=== PATIENT | male | born 1950 | race Caucasian/White ===

== ENCOUNTER 2020-08-08 18:31 | Observation (INO) | payer OTHER, SELFPAY ==
[2020-08-08] VITALS (11 sets, daily range): BP systolic 174–216; BP diastolic 49–72; PULSE 64–80; RESP 12–20; TEMP 36.6–36.8; O2SAT 94–97; BMI 29.9
--- NOTE | ~2020-08-08 | XR_ITS ---
EXAMINATION: XR lumbar spine 2-3V EXAM DATE: 08/08/2020 19:44 INDICATION: Low back pain, spasm. TECHNIQUE: Lumber spine frontal, lateral, lateral L5-S1 projections for interpretation. There is no prior study for comparison. FINDINGS: Moderate-sized bridging endplate osteophytes at L1-2 and the inferior endplate of L3. Ther e is mild diffuse lumbar disc disease and mild to moderate facet arthropathy. Extensive aortic arteri al sclerosis. Biiliac arterial stents. Sacrum, sacroiliac joints, sacral arcuate lines are intact. No endplate erosive change. The vertebral bodies are aligned in the AP dimension. IMPRESSION: 1. [id number] lumbar spondylosis. 2. No acute findings. Reviewed, dictated and finalized at location A. IMPRESSION: 1. [id number] lumbar spondylosis. 2. No acute findings.
--- NOTE | ~2020-08-08 | US_ITS ---
EXAMINATION: US venous doppler [facility] DATE: 08/09/2020 12:21 INDICATION: Bilateral lower limb edema TECHNIQUE: Roth scale images without and with compression and Doppler images of the bilateral lower e xtremity veins were obtained. COMPARISON: None FINDINGS: The right common femoral vein, profunda femoral vein, femoral vein, popliteal vein, peroneal trunk, p osterior tibial veins, and greater saphenous vein are patent. The left common femoral vein, profunda femoral vein, femoral vein, popliteal vein, peroneal trunk, po sterior tibial veins, and greater saphenous vein are patent. IMPRESSION: 1. Patent bilateral lower extremity veins. No evidence of deep venous thrombosis. Reviewed, dictated and finalized at location B. IMPRESSION: 1. Patent bilateral lower extremity veins. No evidence of deep venous thrombosi s.
--- NOTE | ~2020-08-08 | CT_ITS ---
EXAMINATION: CT abdomen pelvis wo con EXAM DATE: 08/08/2020 22:07 INDICATION: Abdominal pain. TECHNIQUE: Spiral CT of the abdomen and pelvis was performed without contrast. Axial, coronal and sag ittal images were reviewed. The dose-length product (DLP) for this examination was 1124.56 mGy-cm. The exposure was tailored according to patient size (auto mA exposure control), and iterative reconst ruction (ASIR) was used as additional dose reduction technique. There is no prior study for comparis on. FINDINGS: Scattered renal arterial sclerosis and also possible nonobstructing calyceal stones. Some s carring at the lower pole of the left kidney. The prostate is unremarkable. The bladder is distended but otherwise unremarkable. The liver, spleen, adrenal glands and pancreas are unremarkable. There are cholecystectomy clips. There is no retroperitoneal or pelvic lymphadenopathy. There is extens shahram scattered arterial sclerotic disease. There is some density within the appendix but could be ingested contrast or other ingested material. The appendix is normal in caliber and there is no adjacent inflammation. The stomach and small bowel are unremarkable. There is expected amount of colonic stool. No free intraperitoneal gas. The h eart is normal in size. There are no pericardial or pleural effusions. The lung bases are unremarka ble. There are no osteoblastic or osteolytic lesions identified. IMPRESSION: 1. No acute intra-abdominal findings. 2. Renal arterial sclerosis versus nonobstructing calyceal stones. Reviewed, dictated and finalized at location A.
--- NOTE | ~2020-08-08 | US_ITS ---
EXAMINATION: US retroperitoneal comp DATE: 08/09/2020 12:21 INDICATION: Acute on chronic renal failure TECHNIQUE: Multiple grayscale and Doppler ultrasound images of the kidneys were obtained. COMPARISON: None. FINDINGS: The right kidney measures 10.0 x 5.2 x 5.0 cm. There is a 7 mm cyst of the kidney. Vascular calcifications are noted. The left kidney measures 10.7 x 5.7 x 5.0 cm. The kidneys demonstrate norm al parenchymal echogenicity. There is no hydronephrosis. The bladder demonstrates a small amount of d ebris. IMPRESSION: 1. Normal kidneys without hydronephrosis. 2. Small amount of debris in the bladder. Reviewed, dictated and finalized at location B.
[2020-08-08] MEDS: methylPREDNISolone SOD SUCC 125 MG VIAL IV PUSH (19:28)
[2020-08-08] MEDS: KETOROLAC 15 MG/ML VIAL (*BKC) IV PUSH (19:31)
--- NOTE | 2020-08-08 19:49 | ED.GENADULT ---
HPI - General Adult General Chief complaint: Back Pain/Injury <Maranda Butler PA-C - Last Filed: 08/08/20 22:55> Stated complaint: mucle spasm <Maranda Butler PA-C - Last Filed: 08/08/20 22:55> Time Seen by Provider: 08/08/20 18:56 <Maranda Butler PA-C - Last Filed: 08/08/20 22:55> Source: patient and family (Daughter Melinda) <Maranda Butler PA-C - Last Filed: 08/08/20 22:55> Mode of arrival: EMS <ARNOLD Hargrove Last Filed: 08/08/20 22:55> Limitations: no limitations <Maranda Butler PA-C - Last Filed: 08/08/20 22:55> History of Present Illness HPI narrative: Patient with history of cervical surgery, incomplete quadriplegia, hypertension GERD hypercholesterolemia BPH presents with chief complaint of intermittent low back spasming that has been progressively worsening over the past 2 weeks. Patient states that he has a history of cervical discomfort and surgery many years ago for which he takes baclofen in cyclobenzaprine for muscle spasming. Patient states he has been taking those medications without remittance of his low back spasms. Patient states that he has not had any recent falls or direct injuries to correlate his low back pain. He denies any radiation of pain to his lower extremities any numbness or tingling or saddle paresthesias in his lower extremities or loss of bowel or bladder function. Patient states that he sees a spinal specialist for his cervical issues but has not reached out regarding his lumbar issues. Patient states that 3 to 4 months ago he went to the [facility] with low back pain and was offered a steroid but he declined at that time. Patient states that his symptoms resolved and he never followed up because he did not think much of it. Patient states that he was having trouble ambulating today with his walker due to his back pain so he called the ambulance to bring him to the emergency department. <Maranda Butler PA-C - Last Filed: 08/08/20 22:55> Related Data Home medications: Home Medications Medication Instructions Recorded Confirmed aspirin 81 mg PO DAILY 08/08/20 baclofen 20 mg PO TID 08/08/20 cetirizine 5 mg PO DAILY 08/08/20 chlorthalidone 25 mg PO DAILY 08/08/20 cholecalciferol (vitamin D3) 50 mcg PO DAILY 08/08/20 clopidogrel 75 mg PO DAILY 08/08/20 cyclobenzaprine 5 mg PO TID PRN 08/08/20 docusate sodium 100 mg PO BID 08/08/20 duloxetine 30 mg PO DAILY 08/08/20 ferrous sulfate 325 mg PO BID 08/08/20 furosemide 20 mg PO BID 08/08/20 isosorbide mononitrate 30 mg PO DAILY 08/08/20 losartan 50 mg PO DAILY 08/08/20 metoprolol tartrate 25 mg PO DAILY 08/08/20 multivitamin with minerals [Daily 1 tablet PO DAILY 08/08/20 Multivitamin-Minerals] omega 0-pvn-cov-fish oil [Fish Oil] 1 cap PO DAILY 08/08/20 pantoprazole 40 mg PO HS 08/08/20 pravastatin 80 mg PO DAILY 08/08/20 tamsulosin mg PO 08/08/20 <Maranda Butler PA-C - Last Filed: 08/08/20 22:55> Allergies/adverse reactions: Allergies Allergy/AdvReac Type Severity Reaction Status Date / Time morphine Allergy Unknown Verified 08/08/20 18:41 <Maranda Butler PA-C - Last Filed: 08/08/20 22:55> Review of Systems Review of Systems: Narrative: CONSTITUTIONAL: Denies fever, chills, or sweats. EYES: Denies visual changes, redness, or discharge. ENT: Denies rhinorrhea, congestion, sore throat, or otalgia. CARDIOVASCULAR: Denies chest pain, palpitations, or edema. RESPIRATORY: Denies cough or dyspnea. GASTROINTESTINAL: Denies abdominal pain, nausea, vomiting, or diarrhea. GENITOURINARY: Denies dysuria or hematuria. SKIN: Denies rash or itching. MUSCULOSKELETAL: Reports back spasms, denies joint pain, or myalgia. NEUROLOGIC: Denies headache, numbness, dizziness, or weakness. PSYCHIATRIC: Denies anxiety or depression. <Maranda Butler PA-C - Last Filed: 08/08/20 22:55> [facility] Past Medical History Medical History: Medical History (Updated 08/08/20 @ 22
[2020-08-08 21:02] LABS: Basophils Percent Auto 0.4 % (0.2-1.2); Eosinophils Absolute Auto 0.1 K/mm3 (0-0.3); Eosinophils Percent Auto 1.3 % (0-4.4); Hematocrit 36.2 % (42.0-52.0); Hemoglobin 11.5 g/dL (14.0-18.0); Immature Granulocyte Absolute 0.05 K/mm3 (0.00-0.031); Immature Granulocyte Percent A 0.5 % (0-0.5); Lymphocytes Absolute Auto 0.87 K/mm3 (0.9-3.2); Lymphocytes Percent Auto 8.8 % (18.3-44.2); Mean Corpuscular HGB Conc 31.8 g/dl (32-36); Mean Corpuscular Hemoglobin 29.7 pg (26-34); Mean Corpuscular Volume 93.5 fl (80-100); Mean Platelet Volume 11.4 fl (7.4-10.4); Monocytes Absolute Auto 0.5 K/mm3 (0.1-0.6); Monocytes Percent Auto 4.6 % (2.6-8.5); Neutrophils Absolute Auto 8.4 K/mm3 (1.3-6.7); Neutrophils Percent Auto 84.4 % (45.5-73.1); Platelet Count Result 155 k/mm3 (150-375); Red Blood Count 3.87 M/mm3 (4.6-6.20); Red Cell Distribution Width 14.3 % (11.5-14.5); White Blood Count 9.9 K/mm3 (4.5-10.0)
[2020-08-08 21:12] LABS: Alanine Aminotransferase 15 U/L (4-50); Alkaline Phosphatase 97 U/L (38-126); Anion Gap 6 mmol/L (8-16); Aspartate Amino Transferase 20 U/L (17-59); Bilirubin,Total 0.4 mg/dL (0.2-1.3); Blood Urea Nitrogen 46 mg/dL (9-20); Calcium 8.9 mg/dL (8.4-10.2); Carbon Dioxide 26 mmol/L (22-30); Chloride 107 mmol/L (98-107); Estimated CRCL calculation 32 ml/min; Estimated Glomerular Filt Rate 31; Glucose 110 mg/dL (75-110); Potassium 4.9 mmol/L (3.4-5.0); Sodium 139 mmol/L (137-145)
[2020-08-08 21:27] LABS: Add Urine Microscopic? YES; Appearance Urine Cloudy (Clear); Bacteria Urine 1+ /hpf; Bilirubin Urine Negative (Negative); Blood Urine Negative (Negative); Color Urine Yellow (Yellow); Glucose Urine UA Negative (Negative); Ketones Urine Negative (Negative); Leukocyte Esterase Ur 3+ LEU/UL (Negative); Mucus Urine Rare /lpf; Nitrate Urine Negative (Negative); Protein Urine 1+ mg/dL (Negative); Specific Grav Ur 1.012 (1.001-1.035); Urobilinogen Urine Negative mg/dL (<2.0); WBC Urine >75 /hpf
[2020-08-08] MEDS: hydrALAZINE HCL 20 MG/ML VIAL 10 MG IV PUSH (22:16)
--- NOTE | 2020-08-08 23:50 | ADMGEN ---
This patient, Con Prado, was admitted to Medical Room 340-01. Patient/family oriented to hospital policies and general routines including ID bracelet, bed and alarms, visiting hours, pain management, procedures, bathroom and other care routines, personal items, smoking policy, room service/diet, and visiting hours. Valuables list has been completed. Information on how to activate the Rapid Response Team has been discussed. Patient/Family are encouraged to report perceived risks to care and to ask questions if they do not understand what they are told or what they should do.
--- NOTE | 2020-08-08 23:58 | PM.IMHP ---
H&P: HPI History of Present Illness Date/Time: 08/08/20 23:58 Chief complaint: Acute Kidney Injury, UTI, Low Back Pain Narrative: Con Prado is a 70 year old male who typically goes to the MD. His a past history of cervical fracture. He has had C5 fusion in the past year he has incomplete quadriplegia. He has a history of having hypertension hyperlipidemia poor the patient's chief complaint is intermittent lower back pain. It has been progressively getting worse for the last 2 weeks. The ER doctor called the MD and they stated that they did not have any beds. The patient takes but baclofen for his muscle spasms. He has not had any recent falls or injuries. He has not lost bowel or bladder per he has a history of having chronic renal disease with the last creatinine of 1.7. The patient went to the MD complaining of lower back pain 3-4 months ago he was offered steroids that he refused. The patient was having problems ambulating today. He usually ambulates with a Rollator or of motorized scooter. Patient stated that he urinates without difficulty although he does have some problems with his prostate. He states he takes medication for the prostate. He has not had any fever chills no nausea vomiting or diarrhea. His blood pressure was 214/64 in the emergency room. He states that is usually under control. Patient was given hydralazine. The patient was started on Rocephin for urinary tract infection. Patient was given Toradol in the emergency room as well as Solu-Medrol. The patient is not diabetic and has a ulcerated area on route, the left great toe. Date of service 08/09/2020 Review of Systems Review of Systems: All systems reviewed & are unremarkable except as noted in HPI and below Constitutional: Constitutional: Reports as per HPI and Reports no additional constitutional complaints Eyes: Eyes: Reports as per HPI and Reports no additional eye complaints ENT: Reports system reviewed and no additional complaints, except as documented and Reports Normal hearing present Cardiovascular: Cardiovascular: Reports no additional cardiovascular complaints Respiratory: Respiratory: Reports no additional respiratory complaints and Reports no additional respiratory complaints Gastrointestinal: Gastrointestinal: Reports as per HPI and Reports no additional gastrointestinal complaints Musculoskeletal: Musculoskeletal: Reports no additional musculoskeletal complaints Integumentary/Breasts: Skin/Breast: Reports system reviewed and no additional complaints, except as docu and Reports as per HPI Neurologic: Reports system reviewed and no additional complaints, except as documented, Reports as per HPI and Reports Normal hearing present Psychiatric: Psychiatric: Reports no additional psychiatric complaints and Reports as per HPI Endocrine: Endocrine: Reports no additional endocrine complaints Hematologic/Lymphatic: Hematologic/Lymphatic: Reports no additional hematologic/lymphatic complaints Allergic/Immunologic: Allergic/Immunologic: Reports no additional allergic/immunologic complaints [facility] Social History Social History (Updated 08/09/20 @ 00:16 by Emilia Ruiz NP) Social History: Patient has smoked a pack a cigarettes a day for 53 years. He lives with his who is a durable she helps take care of him. 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 He denies any alcohol or drug use. The patient desires to be a full code. Patient has 1 biological child and 2 stepchildren. He is now disabled. Smoking packs per day: 1 Smoking cigarettes per day: 20.0 Years smoked: 53 Smoking pack-years: 53.00 Smoking status: Current every day smoker Tobacco type: cigarettes Alcohol intake: never Alcohol use details: none Substance use: never Other substance usage details: none Gender identity (if verbalized by the patient): Male Spiritual care concerns: No Meds Home Medications and Allergies Home
[2020-08-09] VITALS (9 sets, daily range): BP systolic 152–188; BP diastolic 52–80; PULSE 71–93; RESP 18–20; TEMP 36.5–37.2; O2SAT 94–99
--- NOTE | 2020-08-09 01:23 | PC.NURSE ---
Fax sent to [facility] at this time, via fax number [phone] to obtain medical records per Emilia Ruiz NP. Signed copy of request placed in chart.
[2020-08-09 05:35] LABS: Basophils Percent Auto 0.1 % (0.2-1.2); Hematocrit 35.3 % (42.0-52.0); Hemoglobin 11.4 g/dL (14.0-18.0); Immature Granulocyte Absolute 0.06 K/mm3 (0.00-0.031); Immature Granulocyte Percent A 0.8 % (0-0.5); Lymphocytes Absolute Auto 0.75 K/mm3 (0.9-3.2); Lymphocytes Percent Auto 9.5 % (18.3-44.2); Mean Corpuscular HGB Conc 32.3 g/dl (32-36); Mean Corpuscular Hemoglobin 29.8 pg (26-34); Mean Corpuscular Volume 92.4 fl (80-100); Mean Platelet Volume 12.3 fl (7.4-10.4); Monocytes Absolute Auto 0.1 K/mm3 (0.1-0.6); Monocytes Percent Auto 1.6 % (2.6-8.5); Platelet Count Result 168 k/mm3 (150-375); Red Blood Count 3.82 M/mm3 (4.6-6.20); Red Cell Distribution Width 14.2 % (11.5-14.5); White Blood Count 7.9 K/mm3 (4.5-10.0)
[2020-08-09] MEDS: methylPREDNISolone SOD SUCC 125 MG VIAL 80 MG IV PUSH ×2 (05:39→11:10)
[2020-08-09 05:53] LABS: Alanine Aminotransferase 15 U/L (4-50); Albumin Level 3.7 g/dL (3.5-5.1); Alkaline Phosphatase 86 U/L (38-126); Anion Gap 6 mmol/L (8-16); Aspartate Amino Transferase 20 U/L (17-59); Bilirubin,Total 0.3 mg/dL (0.2-1.3); Blood Urea Nitrogen 47 mg/dL (9-20); Carbon Dioxide 24 mmol/L (22-30); Chloride 107 mmol/L (98-107); Estimated CRCL calculation 37 ml/min; Estimated Glomerular Filt Rate 38; Glucose 131 mg/dL (75-110); Magnesium 2.4 mg/dL (1.6-2.3); Phosphorus 3.3 mg/dL (2.5-4.5); Potassium 5.3 mmol/L (3.4-5.0); Sodium 137 mmol/L (137-145)
[2020-08-09 06:17] LABS: Thyroid Stimulating Hormone Reflex 0.233 uIU/mL (0.465-4.68)
[2020-08-09 07:52] LABS: Free T4 Free Thyroxine Reflex 1.12 ng/dL (0.78-2.19)
[2020-08-09] MEDS: LORATADINE 5 MG TABLET PO (08:18)
[2020-08-09] MEDS: ISOSORBIDE MONONITRATE 30 MG TAB.ER.24H PO (08:19)
[2020-08-09] MEDS: DULoxetine HCL 30 MG CAPSULE.DR PO (08:19)
[2020-08-09] MEDS: THERAPEUTIC MULTIVITAMINS/MINERALS TAB (*BKC) 1 TABLET PO (08:19)
[2020-08-09] MEDS: TAMSULOSIN HCL 0.4 MG CAPSULE PO (08:19)
[2020-08-09] MEDS: FERROUS SULFATE 324 MG TABLET PO ×2 (08:19→16:21)
[2020-08-09] MEDS: CLOPIDOGREL BISULFATE 75 MG TABLET PO (08:19)
[2020-08-09] MEDS: OMEGA 3 POLYUNSAT FATTY ACIDS 1 GM CAP PO (08:19)
[2020-08-09] MEDS: BACLOFEN 10 MG TABLET 20 MG PO ×3 (08:20→16:21)
[2020-08-09] MEDS: PRAVASTATIN SODIUM 20 MG TABLET 80 MG PO (08:20)
[2020-08-09] MEDS: ASPIRIN 81 MG ENTERIC TABLET PO (08:20)
[2020-08-09] MEDS: DOCUSATE SODIUM 100 MG CAPSULE PO ×2 (08:20→16:20)
[2020-08-09] MEDS: SODIUM POLYSTYRENE SULFONONATE 15 GM/60 ML BTL PO (08:31)
[2020-08-09 09:36] LABS: Total Triiodothyronine (T3) 0.91 NG/ML (0.97-1.69)
[2020-08-09] MEDS: METOPROLOL TARTRATE 12.5 MG TABLET PO ×2 (11:09→21:10)
[2020-08-09] MEDS: PHARMACIST COMMUNICATION ORDER 1 EACH XX (11:10)
--- NOTE | 2020-08-09 13:10 | PM.IMPN ---
Progress Note: A&P Assessment and Plan (1) Acute UTI: Code(s): N39.0 - Urinary tract infection, site not specified Status: Acute Assessment and Plan: UA is suspicious for UTI. Urine culture is pending. CT abd/pelvis was performed with no evidence of obstructing stone or pyelonephritis. Continue IV ceftriaxone. Blood cultures were ordered and are pending. Await final urine cultures. (2) Acute kidney injury: Code(s): N17.9 - Acute kidney failure, unspecified Status: Acute Assessment and Plan: Cr in June was 1.6 per ED record. Renal ultrasound was ordered and demonstrated 7mm right renal cyst, calcifications, and otherwise normal parenchyma without hydronephrosis. CT abd/pelvis demonstrated scarring at the lower pole of the left kidney, scattered renal arterial sclerosis possible nonobstructing calyceal stones. Chlorthalidone, furosemide, and losartan are on hold. Cr has improved to 1.8 and BUN 47 today. GRANT appears pre-renal due to poor PO intake/diuretics with UTI possibly contributing as well. Check bladder scan to r/o retention. Continue to monitor renal function. Avoid nephrotoxins and renally dose medications. (3) Incomplete quadriplegia at C5-C8 level: Code(s): G82.54 - Quadriplegia, C5-C7 incomplete Status: Chronic Assessment and Plan: [facility] Continue prior to admission baclofen and cyclobenzaprine. He was treated with IV solumedrol with significant improvement. Begin taper with medrol dose pack. (4) BPH (benign prostatic hyperplasia): Code(s): N40.0 - Benign prostatic hyperplasia without lower urinary tract symptoms Status: Chronic Assessment and Plan: Chronic with no acute issues. Continue tamsulosin. (5) Chronic incomplete quadriplegia: Code(s): G82.50 - Quadriplegia, unspecified Status: Acute Assessment and Plan: PT/OT were offered but the patient refused. (6) Hypertension: Qualifiers: Hypertension type: unspecified Qualified Code(s): I10 - Essential (primary) hypertension Code(s): I10 - Essential (primary) hypertension Status: Chronic Assessment and Plan: Blood pressures were reviewed and are above target. His low back pain yesterday was likely contributing. Losartan and chlorthalidone are on hold given GRANT. Add amlodipine. Continue to monitor and resume losartan and chlorthalidone when clinically appropriate. Switch BP monitoring to q4 hours. (7) Depression: Code(s): F32.9 - Major depressive disorder, single episode, unspecified Status: Chronic Assessment and Plan: Chronic and stable. Continue cymbalta. (8) Iron deficiency anemia: Code(s): D50.9 - Iron deficiency anemia, unspecified Status: Chronic Assessment and Plan: Chronic. Labs are stable. Continue ferrous sulfate. Continue to monitor. Transfuse PRN to maintain Hb >7. (9) Hyperlipidemia: Code(s): E78.5 - Hyperlipidemia, unspecified Status: Chronic Assessment and Plan: LFTs were reviewed and are normal. Continue pravastatin and omega 3. (10) CAD (coronary artery disease): Code(s): I25.10 - Atherosclerotic heart disease of jena coronary artery without angina pectoris Status: Chronic Assessment and Plan: Chronic. Continue plavix and aspirin. Continue isosorbide mononitrate. (11) Lymphedema: Code(s): I89.0 - Lymphedema, not elsewhere classified Status: Chronic Assessment and Plan: Wound care has been consulted and input is appreciated. Continue leg elevation. He has been referred to a specialist and needs to continue follow-up outpatient. (12) Hyperkalemia: Code(s): E87.5 - Hyperkalemia Status: Acute Assessment and Plan: Potassium was 5.3, likely due to GRANT. Give 1 dose of kayexalate. Repeat BMP tomorrow. Subjective
[2020-08-09] MEDS: EUCERIN CREAM 120 GM JAR 1 APPLIC TOPICAL (15:42)
--- NOTE | 2020-08-09 15:54 | PM.CNNEP ---
Assessment and Plan Assessment and plan (1) Acute kidney injury: Code(s): N17.9 - Acute kidney failure, unspecified Status: Acute Assessment and Plan: presumed baseline creatinine is around 1.6mg/dl probably from HTN, vascular disease, and age likely secondary to acute infection (UTI), pre-renal factors, and continued use of diuretics [employer] creatinine better with IVF and antibiotics CT scan of abdomen/pelvis as well as renal ultrasound noted follow trend of repeat labs and I/Os (2) Acute UTI: Code(s): N39.0 - Urinary tract infection, site not specified Status: Acute Assessment and Plan: highly suggestive based on urinalysis urine culture pending empiric antibiotics (3) Hyperkalemia: Code(s): E87.5 - Hyperkalemia Status: Acute Assessment and Plan: due to #1 and continued use of ARB losartan and diuretics on hold s/p kayexalate follow tred (4) Hypertension: Qualifiers: Hypertension type: unspecified Qualified Code(s): I10 - Essential (primary) hypertension Code(s): I10 - Essential (primary) hypertension Status: Chronic Assessment and Plan: erratic control since admission however, suspect pain issues playing a role follow trend of hemodynamics (5) Chronic incomplete quadriplegia: Code(s): G82.50 - Quadriplegia, unspecified Status: Acute Assessment and Plan: chronic and stable Will continue to follow. History of Present Illness Reason for Consult Consult date: 08/09/20 Reason for consult: acute renal failure (on chronic kidney disease) Chief Complaint Chief complaint: Acute Kidney Injury, UTI, Low Back Pain History of Present Illness Narrative: The patient is a 70 year old male with a past medical history as outlined below who presented to [facility] ER with complaints of low back spasms. The low back spasms have been intermittent but seem to have been getting progressively worse in the last few weeks. He takes chronic Baclofen and Flexeril for his muscle spasms but these medications have not had desired effect in terms of reducing his back spasms in the last few weeks as already mentioned. He reports no recent falls or trauma to his low back area and he denies any type of numbness tingling or paresthesias in his lower extremities or for that matter loss of bowel or bladder function. He does have a spinal specialist that deals with his cervical spine issues but not anyone who deals with his low back problems. Because of the persistence of these issues, he called EMS who brought him to [facility] ER for further evaluation. Workup and evaluation in the emergency room demonstrated the patient to be quite hypertensive (presumably due to pain /discomfort). Routine blood test demonstrated a normal CBC with some mild anemia but his chemistry showed an elevated BUN and creatinine but no critical electrolyte abnormalities. Imaging studies included lumbar x-rays demonstrated [id number] lumbar spondylosis and his CT scan of the abdomen pelvis was somewhat remarkable for renal artery sclerosis with possible calyceal stones. His urinalysis was highly suggestive of a urinary tract infection as well. Given these findings, appropriate cultures were obtained and he was started on antibiotic therapy with subsequent admission to the hospital. Renal consultation was requested due to his acute kidney injury. The emergency department called the [facility] and determined that his baseline creatinine was 1.6 mg/dL. I should) that by saying that that was the most recent creatinine that had available in the records but I am unclear if this is really his true baseline. In any case, his creatinine on admission to [facility] was elevated to 0.1 mg/dL and has come down to 1.8 mg/dL by labs done this morning. All potential nephrotoxic agents are being held and his presumed urinary tract infection
[2020-08-09] MEDS: hydrALAZINE HCL 20 MG/ML VIAL 10 MG IV PUSH (16:21)
[2020-08-09 18:42] LABS: Creatinine Urine 128.6 mg/dL; Total Protein Urine Random 71 mg/dL
[2020-08-09 18:44] LABS: Sodium Urine Random 66 meq/L
[2020-08-09] MEDS: PANTOPRAZOLE 40 MG TABLET PO (21:10)
[2020-08-09] MEDS: CYCLOBENZAPRINE HCL 5 MG TABLET PO (21:13)
[2020-08-10] VITALS (7 sets, daily range): BP systolic 155–200; BP diastolic 52–59; PULSE 67–84; RESP 16–18; TEMP 36.4–36.8; O2SAT 94–96
[2020-08-10] MEDS: methylPREDNISolone (MEDROL) DOSEPACK 4 MG TABLETS PO ×4 (05:56→20:06)
[2020-08-10 06:19] LABS: Basophils Percent Auto 0.2 % (0.2-1.2); Eosinophils Absolute Auto 0.1 K/mm3 (0-0.3); Eosinophils Percent Auto 0.4 % (0-4.4); Hematocrit 33.2 % (42.0-52.0); Hemoglobin 10.8 g/dL (14.0-18.0); Immature Granulocyte Absolute 0.06 K/mm3 (0.00-0.031); Immature Granulocyte Percent A 0.5 % (0-0.5); Lymphocytes Absolute Auto 2.05 K/mm3 (0.9-3.2); Lymphocytes Percent Auto 16.4 % (18.3-44.2); Mean Corpuscular HGB Conc 32.5 g/dl (32-36); Mean Corpuscular Hemoglobin 30.1 pg (26-34); Mean Corpuscular Volume 92.5 fl (80-100); Mean Platelet Volume 11.6 fl (7.4-10.4); Monocytes Absolute Auto 1.1 K/mm3 (0.1-0.6); Monocytes Percent Auto 8.6 % (2.6-8.5); Neutrophils Absolute Auto 9.2 K/mm3 (1.3-6.7); Neutrophils Percent Auto 73.9 % (45.5-73.1); Platelet Count Result 161 k/mm3 (150-375); Red Blood Count 3.59 M/mm3 (4.6-6.20); Red Cell Distribution Width 14.2 % (11.5-14.5); White Blood Count 12.5 K/mm3 (4.5-10.0)
[2020-08-10 07:37] LABS: Anion Gap 6 mmol/L (8-16); Blood Urea Nitrogen 63 mg/dL (9-20); Calcium 8.8 mg/dL (8.4-10.2); Carbon Dioxide 25 mmol/L (22-30); Chloride 107 mmol/L (98-107); Estimated CRCL calculation 40 ml/min; Estimated Glomerular Filt Rate 40; Glucose 97 mg/dL (75-110); Magnesium 2.5 mg/dL (1.6-2.3); Potassium 4.7 mmol/L (3.4-5.0); Sodium 138 mmol/L (137-145)
[2020-08-10] MEDS: amLODIPine BESYLATE 5 MG TABLET PO (08:21)
[2020-08-10] MEDS: DOCUSATE SODIUM 100 MG CAPSULE PO ×2 (08:22→17:46)
[2020-08-10] MEDS: PRAVASTATIN SODIUM 20 MG TABLET 80 MG PO (08:22)
[2020-08-10] MEDS: DULoxetine HCL 30 MG CAPSULE.DR PO (08:22)
[2020-08-10] MEDS: BACLOFEN 10 MG TABLET 20 MG PO ×3 (08:22→17:46)
[2020-08-10] MEDS: ASPIRIN 81 MG ENTERIC TABLET PO (08:23)
[2020-08-10] MEDS: TAMSULOSIN HCL 0.4 MG CAPSULE PO (08:23)
[2020-08-10] MEDS: FERROUS SULFATE 324 MG TABLET PO ×2 (08:23→17:45)
[2020-08-10] MEDS: METOPROLOL TARTRATE 12.5 MG TABLET PO ×2 (08:23→20:03)
[2020-08-10] MEDS: THERAPEUTIC MULTIVITAMINS/MINERALS TAB (*BKC) 1 TABLET PO (08:23)
[2020-08-10] MEDS: OMEGA 3 POLYUNSAT FATTY ACIDS 1 GM CAP PO (08:23)
[2020-08-10] MEDS: CLOPIDOGREL BISULFATE 75 MG TABLET PO (08:23)
[2020-08-10] MEDS: EUCERIN CREAM 120 GM JAR 1 APPLIC TOPICAL (08:24)
[2020-08-10] MEDS: LORATADINE 5 MG TABLET PO (08:24)
[2020-08-10] MEDS: ISOSORBIDE MONONITRATE 30 MG TAB.ER.24H PO (08:24)
--- NOTE | 2020-08-10 14:15 | PM.IMPN ---
Progress Note: A&P Assessment and Plan (1) Acute UTI: Code(s): N39.0 - Urinary tract infection, site not specified Status: Acute Assessment and Plan: UA is suspicious for UTI. Urine culture demonstrates E. coli which is susceptible to ceftriaxone. CT abd/pelvis was performed with no evidence of obstructing stone or pyelonephritis. Continue IV ceftriaxone. Blood cultures were ordered and reveal NGTD. (2) BPH (benign prostatic hyperplasia): Code(s): N40.0 - Benign prostatic hyperplasia without lower urinary tract symptoms Status: Chronic Assessment and Plan: He had 650cc residual on bladder scan 08/09 after voiding 250cc. Edwards was placed. He reports a hx of urinary retention and performs intermittent self catheterization at home. He does endorse he does this less often than he should. Continue tamsulosin. I have asked urology to see him. Further input is appreciated. (3) Urinary retention: Code(s): R33.9 - Retention of urine, unspecified Status: Acute Assessment and Plan: As above. (4) Hypertension: Qualifiers: Hypertension type: unspecified Qualified Code(s): I10 - Essential (primary) hypertension Code(s): I10 - Essential (primary) hypertension Status: Chronic Assessment and Plan: Blood pressures were reviewed and elevated. Losartan and chlorthalidone are on hold given GRANT. Amlodipine was added at 5mg. Continue to monitor. Resume losartan and hold chlorthalidone for now given significant BUN elevation and adequate urine output. (5) Acute kidney injury: Code(s): N17.9 - Acute kidney failure, unspecified Status: Acute Assessment and Plan: Cr in June was 1.6 per ED record. Renal ultrasound was ordered and demonstrated 7mm right renal cyst, calcifications, and otherwise normal parenchyma without hydronephrosis. CT abd/pelvis demonstrated scarring at the lower pole of the left kidney, scattered renal arterial sclerosis possible nonobstructing calyceal stones. Cr has improved to 1.7 and BUN is 63 today. GRANT appears pre-renal due to poor PO intake/diuretics with UTI possibly contributing as well. Continue to monitor renal function. Avoid nephrotoxins and renally dose medications. (6) Incomplete quadriplegia at C5-C8 level: Code(s): G82.54 - Quadriplegia, C5-C7 incomplete Status: Chronic Assessment and Plan: [facility] Continue prior to admission baclofen and cyclobenzaprine. He was treated with IV solumedrol with significant improvement. Continue medrol dose pack for back spasms/pain. (7) Chronic incomplete quadriplegia: Code(s): G82.50 - Quadriplegia, unspecified Status: Acute Assessment and Plan: PT/OT were offered but the patient refused. (8) Depression: Code(s): F32.9 - Major depressive disorder, single episode, unspecified Status: Chronic Assessment and Plan: Chronic and stable. Continue cymbalta. (9) Iron deficiency anemia: Code(s): D50.9 - Iron deficiency anemia, unspecified Status: Chronic Assessment and Plan: Chronic. Labs are stable. Continue ferrous sulfate. Continue to monitor. Transfuse PRN to maintain Hb >7. (10) Hyperlipidemia: Code(s): E78.5 - Hyperlipidemia, unspecified Status: Chronic Assessment and Plan: LFTs were reviewed and are normal. Continue pravastatin and omega 3. (11) CAD (coronary artery disease): Code(s): I25.10 - Atherosclerotic heart disease of [place] coronary artery without angina pectoris Status: Chronic Assessment and Plan: Chronic. Continue plavix and aspirin. Continue isosorbide mononitrate. (12) Lymphedema: Code(s): I89.0 - Lymphedema, not elsewhere classified Status: Chronic Assessment and Plan: Wound care has been consulted and input is appreciated. Continue leg
--- NOTE | 2020-08-10 15:14 | P.PNNP_ITS ---
Progress Note: A&P Assessment and Plan (1) Acute kidney injury: Code(s): N17.9 - Acute kidney failure, unspecified Status: Acute Assessment and Plan: * improving * presumed baseline creatinine is around 1.6mg/dl * probably from HTN, vascular disease, and age * likely secondary to acute infection (UTI), pre-renal factors, and continued use of diuretics [employer] * creatinine better with IVF and antibiotics * CT scan of abdomen/pelvis as well as renal ultrasound noted * follow trend of repeat labs and I/Os (2) Acute UTI: Code(s): N39.0 - Urinary tract infection, site not specified Status: Acute Assessment and Plan: * culture with E. coli * on antibiotics (3) Hyperkalemia: Code(s): E87.5 - Hyperkalemia Status: Acute Assessment and Plan: * better * due to #1 and continued use of ARB * losartan and diuretics on hold * s/p kayexalate * follow trend (4) Hypertension: Qualifiers: Hypertension type: unspecified Qualified Code(s): I10 - Essential (primary) hypertension Code(s): I10 - Essential (primary) hypertension Status: Chronic Assessment and Plan: * erratic control since admission * however, suspect pain issues playing a role * follow trend of hemodynamics (5) Chronic incomplete quadriplegia: Code(s): G82.50 - Quadriplegia, unspecified Status: Acute Assessment and Plan: * chronic and stable Will continue to follow. Subjective Date/time seen: 08/10/20 15:14 No new issues or problems to report; no events overnight or earlier this AM; reasonable UOP in the las 24 hours; tolerating antibiotic therapy. Exam Narrative: Exam Narrative: General: WD/WN male in NAD Heart: normal S1 and S2; no rub Lungs: clear to auscultation Abdomen: soft, nontender, nondistended, positive bowel sounds Extremities: no cyanosis or clubbing; no edema Skin: warm and dry Objective Data Vital Signs Vital Signs: Vital Signs Temp Pulse Resp BP Pulse Ox 08/10/20 12:00 36.4 C L 78 16 158/53 H 94 08/10/20 08:23 68 08/10/20 08:00 36.6 C 71 18 94 08/10/20 04:00 36.6 C 67 18 156/59 H 95 08/09/20 23:59 37.1 C 71 18 152/65 H 94 08/09/20 21:10 89 08/09/20 19:54 37.2 C 89 18 182/55 H 94 08/09/20 17:33 88 20 167/55 H 99 08/09/20 16:35 37.0 C 87 18 187/58 H 97 Intake/Output Intake/Output: Intake & Output 08/07/20 08/08/20 08/09/20 08/10/20 23:59 23:59 23:59 23:59 Intake Total 50 1060 220 Output Total 1030 500 Balance 50 30 -280 Meds/Results Medications: Active Medications Generic Name Dose Route Start Last Admin Trade Name Libanq PRN Reason Stop Dose Admin Amlodipine Besylate 5 mg 08/10/20 09:00 08/10/20 08:21 Norvasc PO 5 mg QAM BÁRBARA Administration Aspirin 81 mg 08/09/20 09:00 08/10/20 08:23 Aspirin Ec PO 81 mg DAILY BÁRBARA Administration Baclofen 20 mg 08/09/20 09:00 08/10/20 13:18 Lioresal Po PO 09/08/20 09:01 20 mg TID BÁRBARA Administration Clopidogrel Bisulfate 75 mg 08/09/20 09:00 08/10/20 08:23 Plavix PO 75 mg DAILY BÁRBARA Administration Cyclobenzaprine HC
--- NOTE | 2020-08-10 15:14 | PM.PNNEP ---
Progress Note: A&P Assessment and Plan (1) Acute kidney injury: Code(s): N17.9 - Acute kidney failure, unspecified Status: Acute Assessment and Plan: improving presumed baseline creatinine is around 1.6mg/dl probably from HTN, vascular disease, and age likely secondary to acute infection (UTI), pre-renal factors, and continued use of diuretics [employer] creatinine better with IVF and antibiotics CT scan of abdomen/pelvis as well as renal ultrasound noted follow trend of repeat labs and I/Os (2) Acute UTI: Code(s): N39.0 - Urinary tract infection, site not specified Status: Acute Assessment and Plan: culture with E. coli on antibiotics (3) Hyperkalemia: Code(s): E87.5 - Hyperkalemia Status: Acute Assessment and Plan: better due to #1 and continued use of ARB losartan and diuretics on hold s/p kayexalate follow trend (4) Hypertension: Qualifiers: Hypertension type: unspecified Qualified Code(s): I10 - Essential (primary) hypertension Code(s): I10 - Essential (primary) hypertension Status: Chronic Assessment and Plan: erratic control since admission however, suspect pain issues playing a role follow trend of hemodynamics (5) Chronic incomplete quadriplegia: Code(s): G82.50 - Quadriplegia, unspecified Status: Acute Assessment and Plan: chronic and stable Will continue to follow. Subjective Date/time seen: 08/10/20 15:14 No new issues or problems to report; no events overnight or earlier this AM; reasonable UOP in the las 24 hours; tolerating antibiotic therapy. Exam Narrative: Exam Narrative: General: WD/WN male in NAD Heart: normal S1 and S2; no rub Lungs: clear to auscultation Abdomen: soft, nontender, nondistended, positive bowel sounds Extremities: no cyanosis or clubbing; no edema Skin: warm and dry Objective Data Vital Signs Vital Signs: Vital Signs Temp Pulse Resp BP Pulse Ox 08/10/20 12:00 36.4 C L 78 16 158/53 H 94 08/10/20 08:23 68 08/10/20 08:00 36.6 C 71 18 94 08/10/20 04:00 36.6 C 67 18 156/59 H 95 08/09/20 23:59 37.1 C 71 18 152/65 H 94 08/09/20 21:10 89 08/09/20 19:54 37.2 C 89 18 182/55 H 94 08/09/20 17:33 88 20 167/55 H 99 08/09/20 16:35 37.0 C 87 18 187/58 H 97 Intake/Output Intake/Output: Intake & Output 08/07/20 08/08/20 08/09/20 08/10/20 23:59 23:59 23:59 23:59 Intake Total 50 1060 220 Output Total 1030 500 Balance 50 30 -280 Meds/Results Medications: Active Medications Generic Name Dose Route Start Last Admin Trade Name Freq PRN Reason Stop Dose Admin Amlodipine Besylate 5 mg 08/10/20 09:00 08/10/20 08:21 Norvasc PO 5 mg QAM BÁRBARA Administration Aspirin 81 mg 08/09/20 09:00 08/10/20 08:23 Aspirin Ec PO 81 mg DAILY BÁRBARA Administration Baclofen 20 mg 08/09/20 09:00 08/10/20 13:18 Lioresal Po PO 09/08/20 09:01 20 mg TID BÁRBARA Administration Clopidogrel Bisulfate 75 mg 08/09/20 09:00 08/10/20 08:23 Plavix PO 75 mg DAILY BÁRBARA Administration Cyclobenzaprine HCl 5 mg 08/09/20 00:22 08/09/20 21:13 Flexeril PO 5 mg TID PRN Administration Pain Docusate Sodium 100 mg 08/09/20 09:00 08/10/20 08:22 Colace Capsule PO 100 mg BID BÁRBARA Administration Duloxetine HCl 30 mg 08/09/20 09:00 08/10/20 08:22 Cymbalta PO 30 mg DAILY BÁRBARA Administration Ferrous Sulfate 324 mg 08/09/20 08:00 08/10/20 08:23 Ferrous Sulfate PO 324 mg BIDWM BÁRBARA Administration Fish Oil 1 gm 08/09/20 09:00 08/10/20 08:23 Lovaza PO 1 gm DAILY BÁRBARA Administration Hydralazine HCl 10 mg 08/09/20 00:36 08/09/20 16:21 Apresoline Hcl Inj IV PUSH 10 mg Q8H PRN Administration Blood Pressure - High Ceftriaxone Sodium/Dextrose 1 gm in 50 mls @ 100 mls/hr 08/09/20 21:08/09/20 21:41 Rocephin 1 Gm/D
[2020-08-10] MEDS: hydrALAZINE HCL 20 MG/ML VIAL 10 MG IV PUSH (17:57)
[2020-08-10] MEDS: CYCLOBENZAPRINE HCL 5 MG TABLET PO (20:03)
[2020-08-10] MEDS: PANTOPRAZOLE 40 MG TABLET PO (20:03)
[2020-08-10] MEDS: ENOXAPARIN 40 MG/0.4 ML SYRINGE SUB-Q (20:06)
[2020-08-11 02:00] VITALS: BP 180/62; PULSE 68; RESP 18; TEMP 37; O2SAT 96
[2020-08-11 06:00] VITALS: BP 176/53; PULSE 67; RESP 21; TEMP 37; O2SAT 100
[2020-08-11 06:22] LABS: Hematocrit 34.8 % (42.0-52.0); Hemoglobin 11.3 g/dL (14.0-18.0); Mean Corpuscular HGB Conc 32.5 g/dl (32-36); Mean Corpuscular Hemoglobin 29.9 pg (26-34); Mean Corpuscular Volume 92.1 fl (80-100); Mean Platelet Volume 12.1 fl (7.4-10.4); Platelet Count Result 154 k/mm3 (150-375); Red Blood Count 3.78 M/mm3 (4.6-6.20); Red Cell Distribution Width 14.2 % (11.5-14.5); White Blood Count 9.3 K/mm3 (4.5-10.0)
[2020-08-11] MEDS: methylPREDNISolone (MEDROL) DOSEPACK 4 MG TABLETS PO (06:25)
[2020-08-11 06:41] LABS: Anion Gap 6 mmol/L (8-16); Blood Urea Nitrogen 49 mg/dL (9-20); Calcium 9.2 mg/dL (8.4-10.2); Carbon Dioxide 25 mmol/L (22-30); Chloride 108 mmol/L (98-107); Estimated CRCL calculation 45 ml/min; Estimated Glomerular Filt Rate 46; Glucose 97 mg/dL (75-110); Potassium 4.7 mmol/L (3.4-5.0); Sodium 139 mmol/L (137-145)
[2020-08-11 08:00] VITALS: PULSE 64; RESP 18; O2SAT 95
[2020-08-11] MEDS: PRAVASTATIN SODIUM 20 MG TABLET 80 MG PO (08:02)
[2020-08-11] MEDS: BACLOFEN 10 MG TABLET 20 MG PO ×2 (08:02→13:13)
[2020-08-11] MEDS: OMEGA 3 POLYUNSAT FATTY ACIDS 1 GM CAP PO (08:02)
[2020-08-11 08:03] VITALS: PULSE 67
[2020-08-11] MEDS: METOPROLOL TARTRATE 12.5 MG TABLET PO (08:03)
[2020-08-11] MEDS: ISOSORBIDE MONONITRATE 30 MG TAB.ER.24H PO (08:04)
[2020-08-11] MEDS: CLOPIDOGREL BISULFATE 75 MG TABLET PO (08:04)
[2020-08-11] MEDS: FERROUS SULFATE 324 MG TABLET PO (08:04)
[2020-08-11] MEDS: amLODIPine BESYLATE 5 MG TABLET PO (08:04)
[2020-08-11] MEDS: TAMSULOSIN HCL 0.4 MG CAPSULE PO (08:04)
[2020-08-11] MEDS: THERAPEUTIC MULTIVITAMINS/MINERALS TAB (*BKC) 1 TABLET PO (08:04)
[2020-08-11] MEDS: DULoxetine HCL 30 MG CAPSULE.DR PO (08:04)
[2020-08-11] MEDS: LORATADINE 5 MG TABLET PO (08:04)
[2020-08-11] MEDS: ASPIRIN 81 MG ENTERIC TABLET PO (08:05)
[2020-08-11] MEDS: DOCUSATE SODIUM 100 MG CAPSULE PO (08:05)
[2020-08-11] MEDS: EUCERIN CREAM 120 GM JAR 1 APPLIC TOPICAL (08:11)
[2020-08-11] MEDS: CHLORTHALIDONE 25 MG TABLET PO (10:26)
[2020-08-11] MEDS: FUROSEMIDE 20 MG TABLET PO (10:26)
[2020-08-11] MEDS: LOSARTAN POTASSIUM 50 MG TABLET PO (10:26)
[2020-08-11 11:40] VITALS: BP 165/52; PULSE 64; RESP 18; TEMP 36.5; O2SAT 95
--- NOTE | 2020-08-11 13:12 | WPDURCON ---
Assessment and Plan Assessment and plan (1) Asymptomatic bacteriuria: Code(s): R82.71 - Bacteriuria Status: Acute Assessment and Plan: this is due to self catheterization. He has no symptoms of urinary tract infection. Can likely discontinue antibiotics. (2) Flaccid neurogenic bladder: Code(s): N31.2 - Flaccid neuropathic bladder, not elsewhere classified Status: Acute Assessment and Plan: Can discontinue Edwards catheter he go back to intermittent self catheterization. Urology Consult Note HPI Date Seen: 08/11/20 Requesting Physician: Amanda Moreau PA-C Primary Care Provider: He gets his care at the [facility] Consult Narrative Narrative: Con Prado is a 70 year old male who gets is normal care from the [facility]. He has a history of incomplete quadriplegia. He does intermittent catheterization twice a day. He is not always compliant with this. He is admitted the hospital for back spasms. He is also found to have a urine culture positive for E coli which is likely just asymptomatic bacteriuria Given the fact that he does self catheterization. He was found to have 650 cc in his bladder after a void of 250. A Edwards catheter is placed. He has no specific complaints at this time. His urine is clear and he is tolerating his Edwards catheter. Review of Systems Review of Systems: All systems reviewed & are unremarkable except as noted in HPI and below PMFSH Past Medical History Medical History (Updated 08/11/20 @ 13:15 by Cale Quinones MD) BPH (benign prostatic hyperplasia) C5 cervical fracture CAD (coronary artery disease) Cervical disc disorder Chronic incomplete quadriplegia Depression Hyperlipidemia Hypertension Incomplete quadriplegia at C5-C8 level Iron deficiency anemia Peripheral artery disease TIA (transient ischemic attack) Surgical History Surgical History H/O heart artery stent X1 H/O hemorrhoidectomy Hx of cholecystectomy S/P cervical spinal fusion S/P peripheral artery angioplasty with stent placement Bilateral leg Social History Social History (Updated 08/09/20 @ 00:16 by Emilia Ruiz NP) Social History: Patient has smoked a pack a cigarettes a day for 53 years. He lives with his who is a durable she helps take care of him. 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 He denies any alcohol or drug use. The patient desires to be a full code. Patient has 1 biological child and 2 stepchildren. He is now disabled. Smoking packs per day: 1 Smoking cigarettes per day: 20.0 Years smoked: 53 Smoking pack-years: 53.00 Smoking status: Current every day smoker Tobacco type: cigarettes Alcohol intake: never Alcohol use details: none Substance use: never Other substance usage details: none Gender identity (if verbalized by the patient): Male Spiritual care concerns: No Meds Home Medications and Allergies Home Medications Medication Instructions Recorded Confirmed Type aspirin 81 mg PO DAILY 08/08/20 08/09/20 History baclofen 20 mg PO TID 08/08/20 08/09/20 History cetirizine 10 mg PO DAILY 08/08/20 08/09/20 History chlorthalidone 25 mg PO DAILY 08/08/20 08/09/20 History cholecalciferol (vitamin D3) 50 mcg PO DAILY 08/08/20 08/09/20 History clopidogrel 75 mg PO DAILY 08/08/20 08/09/20 History cyclobenzaprine 5 mg PO TID PRN 08/08/20 08/09/20 History docusate sodium 100 mg PO BID 08/08/20 08/09/20 History duloxetine 30 mg PO DAILY 08/08/20 08/09/20 History ferrous sulfate 325 mg PO TID 08/08/20 08/09/20 History furosemide 20 mg PO BID 08/08/20 08/09/20 History isosorbide mononitrate 30 mg PO DAILY 08/08/20 08/09/20 History losartan 50 mg PO DAILY 08/08/20 08/09/20 History metoprolol tartrate 25 mg PO DAILY 08/08/20 08/09/20 History multivitamin with minerals [Daily 1 tablet PO DAILY 08/08/20 08/09/20 History Multivitamin-Minerals] omega
--- NOTE | 2020-08-11 14:04 | PM.DS ---
DS: Admitting Diagnosis Admitting Diagnosis Admitting Diagnosis: Acute Kidney Injury, UTI, Low Back Pain DS: Discharge Diagnosis Discharge Diagnosis (1) Acute UTI: Code(s): N39.0 - Urinary tract infection, site not specified Status: Acute Assessment and Plan: Discharge Summary (Date of service 08/11/20): Mr. Prado is a 70 y.o. male with PMH significant for CAD, urinary retention, CKD, BPH, cervical disease with chronic incomplete quadriplegia, and CONSTANCE who presented to the emergency department for the evaluation of intermittent low back pain/spasm. Initial workup in the ED was notable for GRANT with Cr 2.1 and BUN 46, UA suspicious for UTI, lumbar plain films with no acute abnormalities, and CT abd/pelvis with no evidence of obstructing stone or pyelonephritis. He was treated with IV ceftriaxone and IV solu-medrol and admitted to the hospitalist service. Urine culture demonstrated E. coli susceptible to ceftriaxone. He was treated with 3 days of IV ceftriaxone and seen by urology who recommended no further antibiotics given asymptomatic bacteruria, likely due to intermittent self catheterization. Guadalupe was placed due to 650cc residual on bladder scan. He reported that he does perform self intermittent catheterization at home but does not do this as often as he should. Urology recommended guadalupe removal and continued self-intermittent catheterization at least 3 times daily. He had GRANT which resolved with holding his diuretic. GRANT was felt to be pre-renal. His back spasms improved significantly following steroid therapy and were no longer causing difficulty ambulating. He felt much better and requested to go home He was discharged in stable condition on the afternoon of 08/11/20. (2) BPH (benign prostatic hyperplasia): Code(s): N40.0 - Benign prostatic hyperplasia without lower urinary tract symptoms Status: Chronic Assessment and Plan: He had 650cc residual on bladder scan 08/09 after voiding 250cc. Guadalupe was placed. He reports a hx of urinary retention and performs intermittent self catheterization at home. He does endorse he does this less often than he should. Tamsulosin was continued and he was seen by urology who recommended guadalupe discontinuation and continued intermittent catheterization (AT LEAST 3 times daily) [facility] (3) Urinary retention: Code(s): R33.9 - Retention of urine, unspecified Status: Acute Assessment and Plan: As above. (4) Hypertension: Qualifiers: Hypertension type: unspecified Qualified Code(s): I10 - Essential (primary) hypertension Code(s): I10 - Essential (primary) hypertension Status: Chronic Assessment and Plan: Blood pressures were reviewed and elevated. Losartan and chlorthalidone were held initially given GRANT but resumed prior to discharge with improvement. He was advised to keep a BP log and follow-up with his primary care doctor for further medication adjustments as necessary. (5) Acute kidney injury: Code(s): N17.9 - Acute kidney failure, unspecified Status: Acute Assessment and Plan: Cr in June was 1.6 per ED record. Renal ultrasound was ordered and demonstrated 7mm right renal cyst, calcifications, and otherwise normal parenchyma without hydronephrosis. CT abd/pelvis demonstrated scarring at the lower pole of the left kidney, scattered renal arterial sclerosis possible nonobstructing calyceal stones. GRANT appeared pre-renal due to poor PO intake/diuretics with UTI possibly contributing as well. Cr improved to 1.5 on the day of discharge, likely very close to baseline. He was seen by nephrology who recommended to continue present management. 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 (6) Incomplete quadriplegia at C5-C8 level: Code(s): G82.54 - Quadriplegia, C5-C7 incomplete
[2020-08-15 12:39] LABS: Chloride Rand Ur 36 mmol/L (32-290); Chloride/Creatinine Rand Ur 29 (23-275); Creatinine Random Urine 126 mg/dL (20-320)
== END 2020-08-11 15:33 | disposition home or self-care (01) ==
LOC: ANHED 22:37 → ANH3MED 23:09
PROVIDERS: Internal Medicine Nephrology; Nurse Practitioner; Physician Assistant; Admitting Provider Family Medicine; Emergency Provider General Practice; Visit Provider Hospitalist
DX: N39.0 Urinary tract infection, site not specified (principal); B96.20 Unspecified Escherichia coli [E. coli] as the cause of diseases classified elsewhere; R33.8 Other retention of urine; N40.1 Benign prostatic hyperplasia with lower urinary tract symptoms; N17.9 Acute kidney failure, unspecified; R60.0 Localized edema; M62.830 Muscle spasm of back; M47.816 Spondylosis without myelopathy or radiculopathy, lumbar region; I25.10 Atherosclerotic heart disease of native coronary artery without angina pectoris; I10 Essential (primary) hypertension; E78.00 Pure hypercholesterolemia, unspecified; N31.2 Flaccid neuropathic bladder, not elsewhere classified; I73.9 Peripheral vascular disease, unspecified; G82.54 Quadriplegia, C5-C7 incomplete; N40.0 Benign prostatic hyperplasia without lower urinary tract symptoms; F17.210 Nicotine dependence, cigarettes, uncomplicated; F32.9 Major depressive disorder, single episode, unspecified; M50.30 Other cervical disc degeneration, unspecified cervical region; Z86.73 Personal history of transient ischemic attack (TIA), and cerebral infarction without residual deficits
CPT/HCPCS: 36415; 72100; 74176; 76770; 80048; 80053; 81001; 81050; 82436; 82570; 83735; 84100; 84156; 84300; 84439; 84443; 84480; 85025; 85027; 85999; 87040; 87077; 87086; 87088; 87186; 93970; 96365; 96372; 96375; 96376; 99285; A9270; G0378; J0360; J0696; J1650; J1885; J2930